=== PATIENT | female | born 1950 | race Caucasian/White ===

== ENCOUNTER 2016-10-28 12:30 | Inpatient (IN) | payer MEDICARE, OTHER ==
[~2016-10-28] VITALS: Ht 167.6 cm; Wt 199.0 kg
--- NOTE | ~2016-10-28 | DS ---
PATIENT'S NAME: CR GASTON [facility] AGE: 66 Y [address] ROOM: [address] [place], [place] [address] LOCATION: [facility]PCU ADMIT DATE: 10/28/2016 Discharge Summary DISCHARGE DATE: FAMILY PHYSICIAN: Alexus Sanabria MD ATTENDING PHYSICIAN: Marvin Delvalle PRINCIPAL DIAGNOSES: 1. Acute blood loss anemia. 2. Upper gastrointestinal bleed secondary to gastric ulcer, status post EGD. 3. Atrial fibrillation with controlled ventricular rates on long-term anticoagulation with Coumadin. 4. Morbid obesity. 5. Obstructive sleep apnea, on CPAP. 6. Essential hypertension. 7. Acute kidney injury on chronic kidney disease, resolved now. HOSPITAL COURSE: A 66-year-old very pleasant lady was admitted to [facility] after she experienced melena. She reported that she has been using ibuprofen multiple tablets of unknown strength for past many weeks for the joint aches and pains secondary to her arthritis. She was found to be having acute blood loss anemia. She was admitted to the hospital and started on aggressive IV hydration and Protonix drip. She was also found to be in LANCE. Gastroenterology consultation was made and the patient was taken to the endoscopy suite for an EGD as well as colonoscopy. Upper endoscopy revealed a large gastric ulcer which was consistent with NSAID use. Biopsies were taken. A colonoscopy was also done and it was found there was a large sessile polyp which was not removed during this hospitalization. Gastroenterology recommended repeat EGD in 4 weeks to see the healing of this ulcer as well as they plan on doing colonoscopy to remove that polyp. She was advised not to take any NSAIDs anymore and used Tylenol for the pain medication. It was discussed with the Gastroenterology on the day of the discharge with the nurse practitioner, and they did notrecommended continuing the Coumadin at this point. I will have her follow up with primary care physician, MARIE Sanabria in 3 days to check CBC, INR, as well as BMP. I am going to resume all her home medications except Lasix which can be resumed on seeing MARIE. The new medication includes Protonix 40 mg p.o. b.i.d. Other medications include metoprolol 50 mg p.o. t.i.d.,Coumadin 6 mg tablet take 9 mg p.o. daily, docusate 100 mg take four tablets daily, FiberCon 4 tablets p.o. daily, cholecalciferol 1000 mg p.o. daily, ascorbic acid 500 mg take 2 tablets daily lisinopril and hydrochlorothiazide 20/25 take 1-1/2 tablet p.o. daily, multivitamins one tablet p.o. daily. Medications stopped naproxen. The patient was strictly advised to avoid all kinds of [id number] NSAIDs or any kind of NSAIDs. PATIENT'S NAME: CR [facility] AGE: 66 Y [address] ROOM: [address] [place] [id number] [facility] AD[facility] DATE: 10/28/2016 Discharge Summary DISCHARGE DATE: FAMILY PHYSICIAN: Alexus Sanabria MD ATTENDING PHYSICIAN: Marvin Delvalle DIET: Low-sodium diet. ACTIVITY: As tolerated. FOLLOWUP: Follow up with MARIE Sanabria on 11/02/2016. Follow up with Gastroenterology in 4 weeks. The patient was advised to come back to the hospital if she reports melena further. I spent 35 minutes in discharge planning and discharge coordination of this patient. MD MIRANDA WHITEHEAD/keara /[id number] d: 10/30/16 1500 t: 11/02/16 1505, DISCHARGE SUMMARY
--- NOTE | ~2016-10-28 | HP ---
[facility] 66 Y [address] ROOM: [address] [address] [facility] AD[facility] DATE: 10/28/2016 History & Physical DISCHARGE DATE: FAMILY PHYSICIAN: PHYSICIAN, UNKNOWN ATTENDING PHYSICIAN: FRANDY CANSECO DATE OF SERVICE: CHIEF COMPLAINT: Melena and coffee-grounds emesis. HISTORY OF PRESENT ILLNESS: This is a 66-year-old female who has been using ibuprofen on and off roughly 3 tablets per day of unknown strength for the last few weeks, usually about 3 days per week for arthritis. Last dose was last night. Around 2:00 a.m. this morning, the patient woke up with an urge to defecate. When she went to the bathroom, she had 2 episodes of small amount of melena. Later on, she had 1 large episode of melena. She felt slightly lightheaded, but she did not fall. Around 7:00 a.m. this morning, she had 2 more episodes of melena of larger amount. All of these episodes of melena were painless. Around 0730 hours this morning, the patient had 3 episodes of coffee-ground emeses of moderate amount. Again, also painless. The patient has never had an esophagogastroduodenoscopy or a colonoscopy in the past. She also has never had any hematemesis or hematochezia or bright red blood per rectum in the past either. She denies any heavy alcohol use. She was a social alcohol drinker without any alcohol abuse and she quit drinking about 40 years ago. REVIEW OF SYSTEMS: As mentioned in the history of present illness. All other systems reviewed and negative except those mentioned in the history of present illness. PAST MEDICAL HISTORY: 1. Atrial fibrillation, status post 1 or 2 cardioversion according to the patient that were unsuccessful. 2. Hypertension. 3. Hyperlipidemia. 4. Congestive heart failure, not sure which type, we do not have any echo and the patient does not know. 5. Obstructive sleep apnea, on CPAP at 14 pressure of setting at night every night and she is very compliant according to her. ALLERGIES: PENICILLIN WHICH CAUSES YEAST INFECTION. HOME MEDICATIONS: [facility] 66 Y [address] ROOM: [address] [place], [place] [address] [facility] AD[facility] DATE: 10/28/2016 History & Physical DISCHARGE DATE: FAMILY PHYSICIAN: PHYSICIAN, UNKNOWN ATTENDING PHYSICIAN: FRANDY CANSECO 1. Ascorbic acid 1000 mg p.o. daily. 2. Calcium polycarbophil 4 tablets p.o. every day. 3. Vitamin D3 1000 units p.o. daily. 4. Colace 400 mg p.o. daily. 5. Lasix 40 mg p.o. daily. 6. Lisinopril and hydrochlorothiazide 20/25 mg 1 tablet p.o. daily on Saturday, Saturday, , Saturday, and Saturday. 7. Lisinopril and hydrochlorothiazide 20/25 mg 1.5 tablets every day on Saturday and Saturday. 8. Lopressor 50 mg p.o. t.i.d. 9. Multivitamin 1 tablet p.o. daily. 10. Aleve 3 tablets p.o. daily. 11. Potassium supplement 198 mg p.o. every day. 12. Coumadin 9 mg p.o. every day. SOCIAL HISTORY: The patient was a former alcohol drinker, just for a few years only, she quit about 40 years ago already. She denies any alcohol abuse in the past. She denies any cigarette or any illegal drug use. PAST SURGICAL HISTORY: Status post cholecystectomy and status post lap band weight loss surgery 5 years ago. FAMILY HISTORY: Father had COPD and mother had some heart problem that she could not remember. PHYSICAL EXAMINATION: VITAL SIGNS: At the time of my dictation, temperature 97.7, heart rate 75, respirations 16, blood pressure 145/69, and saturation 97% on room air. Pain 0/10. GENERAL APPEARANCE: Alert and oriented x3, in no acute distress. HEENT: Pupils equally round and reactive to light. Extraocular muscles intact. Nasal turbinates are normal bilaterally. Moist oral mucosa. NECK: No JVD. CARDIOVASCULAR: Irregularly irregular rate and rhythm. There is a 2/6 intensity murmur. No rubs, no gallops. RESPIRATORY: Clear. ABDOMEN: Obese, soft, nontender, and nondistended. Bowel sounds present. No hepatosplenomegaly. No palpable mass. EXTREMITIES: No edema in upper or lower extremities. NEUROLOGICAL: Grossly nonfocal. SKIN: No ulcer, no rash, no cyanosis. MUSCULOSKELETAL: No joint pain and no muscle pain. PATIENT'S NAME: CR [facility] AGE: 66 Y [address] ROOM: [address] [place], [place] [address] [facility] AD[facility] DATE: 10/28/2016 History & Physical DISCHARGE DATE: FAMILY PHYSICIAN: PHYSICIAN, UNKNOWN ATTENDING PHYSICIAN: FRANDY CANSECO LABORATORY DATA: Lactic acid 2.0. White blood cells 11.3, hemoglobin 12.1, hematocrit 37.3, MCV 93, and platelet 204. Glucose 105, BUN 42, creatinine 1.2, sodium 142, potassium 4.2, chloride 106, and CO2 29. Calcium 8.0, total protein 7.2, albumin 3.1, AST 18, ALT 17, alkaline phosphatase 73, total bilirubin 0.4, and direct bilirubin 0.1. Anion gap 11.2. GFR 45. INR 1.87, PTT 28. Procalcitonin less than 0.05. IMAGING STUDIES: None. ASSESSMENT/PLAN: 1. Melena, likely from upper gastrointestinal bleeding in the setting of using NSAIDs: Most likely, the cause of the upper gastrointestinal bleeding is from NSAID-induced. I will treat her with IV Protonix bolus followed by drip. I will check another CBC tonight and transfuse if the hemoglobin is less than 8 given that she has a cardiac history from atrial fibrillation and CHF. If the patient has melena or any symptoms or signs of active bleeding such as hematemesis or hematochezia or coffee- grounds emesis, we will check hemoglobin and hematocrit stat and transfuse if necessary. For now, transfusion is not required, she is not anemic. N.p.o. Can have ice chips. She will have a bowel prep with Suprep half the kit tonight and half the other kit in the morning. GI consult. I already spoke to the on-call gasoline dragline operator, Dr. Cazares and the plan is to perform upper endoscopy and colonoscopy tomorrow. Further plan depends on clinical course. IV fluids with D5 water and normal saline at 75 mL/h maintenance. 2. Atrial fibrillation: INR is subtherapeutic at 1.87. In the setting of active gastrointestinal bleeding, I will reverse her with IV vitamin K 5 mg x1 now. Check INR again in the gold letterer and if it is still more than 1.5, we can give fresh frozen plasma to keep the INR less than 1.5 before the colonoscopy and the upper endoscopy. The patient understands that she will be at risk of suffering from stroke, that there is a slight possibility given that her INR will be subtherapeutic in the setting of upper gastrointestinal bleeding until the GI bleeding is controlled. The patient understands the risks. The patient agreed with the current treatment plan. 3. Hypertension: Hold the blood pressure medication in the setting of GI bleeding. 4. Acute kidney injury on chronic kidney disease, stage III: Not sure what is her baseline, there is no baseline to compare. Hydrate her with IV fluids and expect to see improvement tomorrow and can confirm this is the LANCE. 5. Congestive heart failure: Not sure which type. There is no echo. The patient does not look volume overloaded. Lungs are clear. Not in PATIENT'S NAME: CR [facility] AGE: 66 Y [address] ROOM: [place] [address] [facility] ADMIT DATE: 10/28/2016 History & Physical DISCHARGE DATE: FAMILY PHYSICIAN: PHYSICIAN, UNKNOWN ATTENDING PHYSICIAN: FRANDY CANSECO failure. Can give IV Lasix if the patient becomes volume overloaded, but now I will not do any IV Lasix given that she has GI bleeding and she is not in acute on chronic heart failure. 6. Sleep apnea: The patient has obstructive sleep apnea, on home CPAP at setting of 14. We will continue CPAP every night at setting of a pressure of 14. 7. Deep venous thrombosis prophylaxis: She will be on compression devices. Time spent in care on the day of admission 35 minutes including chart review, interviewing the patient, addressing all the questions and concerns the patient and family members had at the bedside, and going over the plan of care in detail with the patient and the patient's family members. MD VALENTINA SAUNDERS/keara /[id number] D: [id number] HISTORY & PHYSICAL
[2016-10-28] MEDS ORDERED: LOPRESSOR50 MG PO (14:53)
[2016-10-28] MEDS ORDERED: PRINIVIL OR ZES10 MG PO (14:53)
[2016-10-28] MEDS ORDERED: ZESTORETIC 20/21 TAB PO ×2 (14:55→15:17)
[2016-10-28] MEDS ORDERED: LASIX40 MG PO (14:56)
[2016-10-28] MEDS ORDERED: COUMADIN6 MG PO ×3 (14:56→14:58)
[2016-10-28] MEDS ORDERED: COLACE100 MG PO (14:59)
[2016-10-28] MEDS ORDERED: FIBERCON1 TAB PO (14:59)
[2016-10-28] MEDS ORDERED: VITAMIN D1000 UNIT PO (15:01)
[2016-10-28] MEDS ORDERED: ASCORBIC ACID500 MG PO (15:01)
[2016-10-28] MEDS ORDERED: WOMEN'S DAILY1 EACH PO (15:22)
[2016-10-28] MEDS ORDERED: POTASSIUM99 M1 PO (15:23)
[2016-10-28] MEDS ORDERED: ALEVE220 MG PO (15:24)
[2016-10-28 15:26] LABS: BASOPHIL % 0.4 %; EOSINOPHIL % 0.1 %; HEMATOCRIT 37.3 % (33.0-46.0); HEMOGLOBIN 12.1 g/dL (10.0-15.0); IMMATURE GRANULOCYTE # 0.1 K/uL (0.0-0.3); IMMATURE GRANULOCYTE % 0.4 %; LYMPHOCYTE # 1.2 K/uL (0.8-4.0); LYMPHOCYTE % 10.6 %; MCH 30.2 pg (27.0-34.0); MCHC 32.4 gm/dL (32.0-36.5); MONOCYTE # 0.5 K/uL (0.0-1.0); MONOCYTE % 4.2 %; MPV 9.9 fl (9.4-12.4); NEUTROPHIL # (ANC) 9.5 K/uL (1.8-7.8); NEUTROPHIL % 84.3 %; NRBC % 0 /100WBC (0-0.00); PLATELET COUNT 204 K/uL (150-450); RBC 4.01 M/uL (3.50-5.50); RDW-CV 13.8 % (11.9-14.6); WBC 11.3 K/uL (4.0-11.0)
[2016-10-28 15:46] LABS: INR - (THERAPEUTIC) 1.87 (0.92-1.07); PROTIME 19.8 SECONDS (9.8-11.4); PTT 28 SECONDS (25-32)
[2016-10-28 15:52] LABS: CREATININE 1.2 mg/dL (0.5-1.1); TOTAL BILIRUBIN 0.4 mg/dL (0.0-1.5); TOTAL PROTEIN 7.2 g/dL (6.0-8.4)
[2016-10-28 15:55] LABS: ANION GAP 11.2 (10.0-19.0); POTASSIUM 4.2 mMol/L (3.7-5.1)
[2016-10-28 15:56] LABS: ALBUMIN 3.1 gm/dL (3.5-5.0)
--- NOTE | 2016-10-28 17:11 | NUR ---
Patient is a 66 year old female who was admitted this afternoon at 1345 for a GI bleed. HX of sleep apnea, a-fibb, arthritis, and a gastric sleeve. Early this morning patient had the urge to go the bathroom. Started having bloody bowel movements and now just blood. Patient also became nauseated and started throwing up blood. Came from [place]. Alert and oriented x3. VSS and on RA. Multiple skin issues. Fall risk. Dr. Delvalle to admit. Needs a wound care consult, patient has many skin integrity problems.
--- NOTE | 2016-10-28 17:15 | NUR ---
Significant Event: Patient is alert and oriented x3. VSS and on RA. VS every 4 hours. NPO. Can have ice chips. CBC at 9, call hopsitalist if HGB <8. L)arm IVs x2, orders just faxed, fluids to be started. IV vitamin K x1. Call MD in the Am if INR is >1.5. If the patient has a black or a bright red stool we are to get and H and H stat and call MD if hgb is <8. IV protonix to be started as well. Fall precautions. CPAP at HS. Settings in the orders. If SBP is <100 or MAP is less than 65 we are to call the MD. If O2 sat is <90 we are to call the MD. Will have suprep bowel kit- drink half at 6pm and then half at 3am. Per MD orders- bed rest, ambulation with assitance only, commode to the bedside. GI consult in the AM- Dr. Walsh is aware, planning for colonscopy and EGD tomorrow. Cooperative with cares.
[2016-10-28 21:28] LABS: HEMATOCRIT 34.5 % (33.0-46.0); HEMOGLOBIN 11.4 g/dL (10.0-15.0); MCH 30.4 pg (27.0-34.0); MPV 10.7 fl (9.4-12.4); RBC 3.75 M/uL (3.50-5.50); RDW-CV 13.8 % (11.9-14.6)
--- NOTE | 2016-10-29 04:53 | NUR ---
Significant Event: A/0 X 3, COOPERATIVE WITH CARES. AFIB RATES 80-90'S BUT DOES INCREASE INTO THE 150'S WITH ANY ACTIVITY. COULD NOT TOLERATE HOSPITAL CPAP, PUT ON 1L 02. HAS BEEN NPO EXCEPT FOR SUPREP FOR EGD/COLONOSCOPY THIS AM. FINSIHED ALL PREP. STOOL STILL BROWN BUT HAS GOTTEN MUCH CLEARER THAN WHEN INITIATED. LABS ARE TO BE DRAWN AT 0600 AND HOSPITALIST IS TO BE CALLED IF INR >1.5 OR HGB < 8. LAST HGB AT 2119 WAS 11.4. UP WITH 1-2 ASSSIST TO BEDSIDE COMMODE. Follow up:
[2016-10-29 06:10] LABS: HEMATOCRIT 32.3 % (33.0-46.0); HEMOGLOBIN 10.2 g/dL (10.0-15.0); MCHC 31.6 gm/dL (32.0-36.5); RBC 3.4 M/uL (3.50-5.50); WBC 8.7 K/uL (4.0-11.0)
[2016-10-29 06:16] LABS: INR - (THERAPEUTIC) 1.33 (0.92-1.07)
[2016-10-29 06:23] LABS: ANION GAP 9.8 (10.0-19.0); CALCIUM 8.2 mg/dL (8.5-10.5); CREATININE 1.2 mg/dL (0.5-1.1); POTASSIUM 3.8 mMol/L (3.7-5.1)
--- NOTE | 2016-10-29 16:19 | NUR ---
Significant events: Patient is alert and oriented x 3. Patient up to comode with one assist. Went off floor for EGD and colonoscopy this AM (1024 - 1330). Patient denies pain, shortness of breath, or numbness and tingling. 1 L O2 in AM to room air after procedure. Lungs clear and diminisehd. SaO2 mid to upper 90's. Heart rhythm A Fib with rates ranging from 79-93. SBP 106-136. Two loose bowel movements this AM, no blood. Left wrist IV saline locked. Left upper arm IV with D5 NS running at 125 mL/hr. Total intake of 1224 mL; total output of 75 mL and 1 large void. Follow up: Advance diet as tolerated. Monitor saO2, bowel movements, and HGB. Continue plan of care.
[2016-10-29 18:14] LABS: HEMATOCRIT 29.7 % (33.0-46.0); HEMOGLOBIN 9.4 g/dL (10.0-15.0)
[2016-10-29 20:44] LABS: BILIRUBIN URINE NEGATIVE (NEGATIVE); BLOOD URINE NEGATIVE /UL (NEGATIVE); COLOR URINE YELLOW (YELLOW); GLUCOSE URINE NEGATIVE (NEGATIVE); KETONE URINE NEGATIVE (NEGATIVE); LEUKOCYTES URINE 25 /UL (NEGATIVE); NITRITE URINE NEGATIVE (NEGATIVE); PROTEIN URINE NEGATIVE (NEGATIVE); SPEC GRAVITY URINE 1.015 (1.003-1.035); TURBIDITY URINE 1+ (CLEAR); UROBILINOGEN URINE NORMAL (NORMAL)
[2016-10-29 21:00] LABS: BACTERIA URINE FEW (NEGATIVE); EPITHELIAL URINE 20-50 #/HPF (NEGATIVE); RBC URINE NEGATIVE #/HPF (NEGATIVE)
--- NOTE | 2016-10-30 04:30 | NUR ---
PATIENT RESTS IN BED COMFORTABLY FOR MOST OF SHIFT. NO BMS THIS SHIFT AND LR 1L INFUSED IN IV. IV LOCATED IN L) UPPER ARM, FLUSHES WELL. IV IN L) HAND D/C BECAUSE OF C/O BURNING AND ITCHING. UP TO COMMODE WITH 1 ASSIST, TOLERATES ACTIVITY FAIR. VOIDS 520 THIS SHIFT. TO CON'T WITH PLAN OF CARE. NO C/O OF PAIN OR BLOODY EMESIS OR BMS.
[2016-10-30 06:14] LABS: BASOPHIL # 0.1 K/uL (0.0-0.2); BASOPHIL % 0.9 %; EOSINOPHIL # 0.2 K/uL (0.0-0.5); EOSINOPHIL % 3.8 %; HEMATOCRIT 29.7 % (33.0-46.0); HEMOGLOBIN 9.6 g/dL (10.0-15.0); IMMATURE GRANULOCYTE # 0.1 K/uL (0.0-0.3); IMMATURE GRANULOCYTE % 0.8 %; LYMPHOCYTE # 1.7 K/uL (0.8-4.0); LYMPHOCYTE % 26.7 %; MCH 30.9 pg (27.0-34.0); MCHC 32.3 gm/dL (32.0-36.5); MCV 95.5 fl (83.0-98.0); MONOCYTE # 0.6 K/uL (0.0-1.0); MPV 10.4 fl (9.4-12.4); NEUTROPHIL # (ANC) 3.7 K/uL (1.8-7.8); NEUTROPHIL % 58.8 %; NRBC % 0 /100WBC (0-0.00); RBC 3.11 M/uL (3.50-5.50); RDW-CV 14.3 % (11.9-14.6); WBC 6.3 K/uL (4.0-11.0)
[2016-10-30 06:15] LABS: PLATELET COUNT 168 K/uL (150-450)
[2016-10-30 06:27] LABS: ANION GAP 9.9 (10.0-19.0); POTASSIUM 3.9 mMol/L (3.7-5.1)
[2016-10-30] MEDS ORDERED: PROTONIX40 MG PO (12:25)
--- NOTE | 2016-10-30 14:30 | NUR ---
Introduced self and role of care management to patient. She lives on [facility] with her spouse. She says she is going home today. Denies discharge needs.
--- NOTE | 2016-10-30 16:38 | NUR ---
Significant events: Patient is alert and oriented x 3 and pleasant. Patient titrated down from 2 L in AM to room air in AM. SaO2's upper 90's. Lungs are clear and diminished. Pain rated 7/10 in shoulder/clavicle area. 650 mg tylenol given, patient satisfied. Left upper arm IV saline locked, flushes well. Heart rate increases drastically with activity, 150-190, but goes back down when resting. Bowel sounds active, one large soft bowel movement this shift. Up with one assist to commode. Patient's left upper arm IV discontinued at 1600. Patiend dischared from hospital at 1615 to personal vehicle by student nurse per wheel chair.
--- NOTE | 2016-10-30 16:47 | NUR ---
Patient discharged at 1615 from hospital to personal vehicle by sudent nurse per wheelchair. Left upper arm IV discontinued at 1600. Patient had difficult time entering vehicle, was light headed, and had to enter through drivers side door. Patient successfully entered vehicle, was given water and a cool towel and left to home with .
--- NOTE | 2016-10-30 19:01 | NUR ---
Student nurse accompanied patient to private auto upon discharge. Student nurse did not discuss with RN that patient was having difficulty getting into car and symptoms accompanying, until patient was already allowed to leave the hospital grounds.
== END 2016-10-30 16:47 | disposition disaster alternative care site (69) | DRG 378 ==
LOC: GPCU 12:30
PROVIDERS: Internal Medicine; ADMIT Internal Medicine
PROC: 0DBF8ZX Excision of Right Large Intestine, Via Natural or Artificial Opening Endoscopic, Diagnostic (ICD-10-PCS; principal; 2016-10-29)
PROC: 0DB68ZX Excision of Stomach, Via Natural or Artificial Opening Endoscopic, Diagnostic (ICD-10-PCS; principal; 2016-10-29)
DX: K25.0 Acute gastric ulcer with hemorrhage (principal); D62 Acute posthemorrhagic anemia; N17.9 Acute kidney failure, unspecified; I48.91 Unspecified atrial fibrillation; I13.0 Hypertensive heart and chronic kidney disease with heart failure and stage 1 through stage 4 chronic kidney disease, or unspecified chronic kidney disease; I50.9 Heart failure, unspecified; Z68.45 Body mass index [BMI] 70 or greater, adult; N18.3 Chronic kidney disease, stage 3 (moderate); G47.33 Obstructive sleep apnea (adult) (pediatric); K92.1 Melena; E66.01 Morbid (severe) obesity due to excess calories; Z23 Encounter for immunization; K92.0 Hematemesis
CPT/HCPCS: C9113; G0009; J7030; J7042; J7050; J7060; J7120